=== PATIENT | female | born 1990 | race Caucasian/White ===

== ENCOUNTER 2020-09-21 10:49 | Emergency (ER) | payer MEDICAID ==
[~2020-09-21] VITALS: Ht 160 cm; Wt 70.0 kg
[2020-09-21 10:52] VITALS: BP 126/80
--- NOTE | 2020-09-21 10:59 | NUR ---
ferry pilot: urine cup given in triage pt eating in triage, pt advised to be NPO
[2020-09-21 11:33] LABS: BASOPHILS % (AUTO) 1 % (0-1); EOSINOPHILS % (AUTO) 2 % (1-7); LYMPHOCYTES % (AUTO) 31 % (22-44); MEAN CORPUSCULAR HEMOGLOBIN 34.9 pg (27.0-34.8); MEAN CORPUSCULAR HGB CONC 34.8 g/dL (32.4-35.8); MEAN PLATELET VOLUME 6.6 fL (7.4-10.4); MONOCYTES % (AUTO) 4 % (2-9); NEUTROPHILS % (AUTO) 64 % (42-75); PLATELET COUNT 231 x10^3/uL (130-400); RED BLOOD COUNT 4.89 x10^6/uL (3.82-5.3)
[2020-09-21 11:41] LABS: ALANINE AMINOTRANSFERASE 110 U/L (12-78); ANION GAP 11 mmol/L (5-15); CALCIUM 9.4 mg/dL (8.5-10.1); CHLORIDE 111 mmol/L (98-107); CREATININE 0.76 mg/dL (0.55-1.02)
[2020-09-21 11:46] LABS: ALKALINE PHOSPHATASE 75 U/L (45-117); BILIRUBIN,TOTAL 0.5 mg/dL (0.2-1.0); TOTAL PROTEIN 7.7 g/dL (6.4-8.2)
--- NOTE | 2020-09-21 12:54 | NUR ---
CASER: NO ANSWER X 1
--- NOTE | 2020-09-21 13:19 | NUR ---
TWX OPERATOR: CALLED PT NO ANSWER
--- NOTE | 2020-09-21 13:26 | NUR ---
SERVICE ORDER TAKER: CALLED PT NO ANSWER
== END 2020-09-21 13:28 | disposition left against medical advice (07) ==
LOC: ED 13:17
DX: N89.8 Other specified noninflammatory disorders of vagina (principal); R11.2 Nausea with vomiting, unspecified
CPT/HCPCS: 36415; 80053; 84703; 85025; 99283

== ENCOUNTER 2020-09-24 14:54 | Emergency (ER) | payer MEDICAID ==
[~2020-09-24] VITALS: Ht 160 cm; Wt 69.0 kg
[2020-09-24 15:54] LABS: BASOPHILS % (AUTO) 1 % (0-1); EOSINOPHILS % (AUTO) 2 % (1-7); LYMPHOCYTES % (AUTO) 20 % (22-44); MEAN CORPUSCULAR HEMOGLOBIN 34.4 pg (27.0-34.8); MEAN CORPUSCULAR HGB CONC 34.6 g/dL (32.4-35.8); MEAN PLATELET VOLUME 7.2 fL (7.4-10.4); MONOCYTES % (AUTO) 6 % (2-9); NEUTROPHILS % (AUTO) 72 % (42-75); PLATELET COUNT 192 x10^3/uL (130-400); RED BLOOD COUNT 4.92 x10^6/uL (3.82-5.3); RED CELL DISTRIBUTION WIDTH 12.8 % (9.6-15.2)
[2020-09-24 16:00] LABS: ALANINE AMINOTRANSFERASE 143 U/L (12-78); ALBUMIN 4.4 g/dL (3.4-5.0); ANION GAP 10 mmol/L (5-15); CALCIUM 8.9 mg/dL (8.5-10.1); CHLORIDE 106 mmol/L (98-107); CREATININE 0.55 mg/dL (0.55-1.02)
[2020-09-24 16:01] LABS: ALKALINE PHOSPHATASE 79 U/L (45-117); BILIRUBIN,TOTAL 1.4 mg/dL (0.2-1.0)
--- NOTE | 2020-09-24 17:03 | NUR ---
RESEARCH WORKER ENCYCLOPEDIA: PT TO ROOM FROM LOBBY VIA W/C
--- NOTE | 2020-09-24 17:54 | NUR ---
PT REPORTS "BLACK IUD" REMOVED DURING ED VISIT HERE LAST NIGHT. PT STATES IUD IN PLACE FOR AT LEAST 12 YEARS. FOLLOWING REMOVAL, PT STATES CONTINUAL N/V, HEMATURIA, AND VB. PT STATES LARGE AMOUNT OF BLOOD, ONE PAD AN HOUR. ALSO VAG DISCHARGE WITH FOUL ODOR. PT WENT TO [facility] EARLIER TODAY AND PER MOM, WAS GIVEN ZOFAN ODT AND WAITED IN LOBBY FOR FIVE HOURS. PT LEFT BEFORE BEING SEEN AND CAME HERE. LABS COMPLETED WHILE PT WAITED IN LOBBY, RESULTS BACK. ST CATH COMPLETED PER PROTOCOL, ORDERED AND WALKED TO LAB. SMALL AMOUNT OF BLOOD IN PERIAREA NOTED, NO DISCHARGE SEEN. VSS/UPDATED IN COMPUTER. CALL LIGHT WITHIN REACH.
[2020-09-24 18:29] LABS: MICROSCOPIC INDICATED
[2020-09-24] MEDS ORDERED: PROMETHAZINE 25 MG/ML, 1ML IM ONE (18:30)
[2020-09-24] MEDS ORDERED: PROMETHAZINE 25 MG/ML, 1ML ONE (18:31)
--- NOTE | 2020-09-24 18:50 | NUR ---
PT TO IMAGING
--- NOTE | 2020-09-24 18:54 | NUR ---
REPORT FROM NOE BRAR
--- NOTE | 2020-09-24 18:57 | NUR ---
REPORT TO ROBERTO BRAR.
--- NOTE | 2020-09-24 19:29 | NUR ---
PT RETURNED FROM US. PT SITTING UPRIGHT ON WILLIAM CALL, VSS. PT DENIES ANY NEEDS AT THIS TIME. CALL LIGHT AND PERSONAL BELONGINGS WITHIN REACH. FRIEND AT BEDSIDE.
[2020-09-24] MEDS ORDERED: CEFTRIAXONE 1,000 MG ONE (20:09)
[2020-09-24] MEDS ORDERED: CEFTRIAXONE 1,000 MG IM ONE (20:30)
--- NOTE | 2020-09-24 20:41 | NUR ---
Patient given discharge instructions and they have confirmed that they understand the instructions. Patient ambulatory with steady gait.
[2020-09-24 20:42] VITALS: BP 122/82
== END 2020-09-24 20:43 | disposition home or self-care (01) ==
LOC: ED 15:24
DX: R11.2 Nausea with vomiting, unspecified (principal); R10.9 Unspecified abdominal pain; N93.9 Abnormal uterine and vaginal bleeding, unspecified; R94.31 Abnormal electrocardiogram [ECG] [EKG]
CPT/HCPCS: 36415; 76830; 80053; 81001; 83690; 85025; 93005; 96372; 99285; J0696; J2550

== ENCOUNTER 2020-10-04 12:31 | Emergency (ER) | payer MEDICAID ==
[~2020-10-04] VITALS: Ht 160 cm; Wt 69.6 kg
--- NOTE | 2020-10-04 12:45 | NUR ---
HERE WEEK AGO FOR INFECTION AROUND PELVIS FROM IUD. RETURNED TODAY, BECAUSE STARTING TODAY SHE HAD SIMILAR FEELING BUT NO BLOOD IN URINE AND HAVING SHARP PAIN IN LOWER ABD. PT IN GOWN, HOOKED TO MONITOR, BELONGING AND CALL LIGHT W/IN REACH.
[2020-10-04] MEDS ORDERED: ONDANSETRON 2MG/ML, 2ML ONE (13:19)
[2020-10-04] MEDS ORDERED: SODIUM CHLORIDE 0.9% 1,000ML IVBOLUS ONE (13:30)
[2020-10-04] MEDS ORDERED: ONDANSETRON 2MG/ML, 2ML IVPush ONE (13:30)
--- NOTE | 2020-10-04 13:43 | NUR ---
PT ABLE TO PROVIDE URINE SAMPLE, THOUGH IT DOESN'T APPEAR TO BE ENOUGH TO PLACE IN TUBES, SAMPLE WALKED DOWN.PIV ATTEMPTED TWICE, BOTH INFILTRATED. TASK RN WILL TRY NEXT TO GET PIV AND TO DRAW LABS. WILLIAM SALINAS, CALL LIGHT W/IN REACH.
[2020-10-04 13:59] LABS: MICROSCOPIC INDICATED
[2020-10-04 14:08] VITALS: BP 127/85
[2020-10-04 14:16] LABS: BASOPHILS % (AUTO) 0 % (0-1); EOSINOPHILS % (AUTO) 0 % (1-7); LYMPHOCYTES % (AUTO) 12 % (22-44); MEAN CORPUSCULAR HEMOGLOBIN 34.4 pg (27.0-34.8); MEAN CORPUSCULAR HGB CONC 34.6 g/dL (32.4-35.8); MEAN PLATELET VOLUME 6.9 fL (7.4-10.4); MONOCYTES % (AUTO) 6 % (2-9); NEUTROPHILS % (AUTO) 81 % (42-75); PLATELET COUNT 189 x10^3/uL (130-400); RED BLOOD COUNT 5.14 x10^6/uL (3.82-5.3)
--- NOTE | 2020-10-04 14:46 | NUR ---
SBAR REPORT GIVEN TO DONNA
[2020-10-04 14:57] LABS: ALANINE AMINOTRANSFERASE 103 U/L (12-78); ALBUMIN 3.6 g/dL (3.4-5.0); ANION GAP 7 mmol/L (5-15); CALCIUM 8.5 mg/dL (8.5-10.1); CHLORIDE 112 mmol/L (98-107); CREATININE 0.63 mg/dL (0.55-1.02)
[2020-10-04 14:59] LABS: ALKALINE PHOSPHATASE 77 U/L (45-117); BILIRUBIN,TOTAL 1.2 mg/dL (0.2-1.0); TOTAL PROTEIN 6.6 g/dL (6.4-8.2)
[2020-10-04] MEDS ORDERED: CEFDINIR 300 MG CAPSULE PO ONE (15:00)
[2020-10-04] MEDS ORDERED: CEFDINIR 300 MG CAPSULE ONE (15:20)
[2020-10-04] MEDS ORDERED: POTASSIUM CHLORIDE 20 MEQ TAB.ER.PRT ONE (15:20)
[2020-10-04] MEDS ORDERED: POTASSIUM CHLORIDE 20 MEQ TAB.ER.PRT PO ONE (15:30)
== END 2020-10-04 15:48 | disposition home or self-care (01) ==
LOC: ED 13:04
DX: N30.00 Acute cystitis without hematuria (principal); R11.2 Nausea with vomiting, unspecified; E87.6 Hypokalemia
CPT/HCPCS: 36415; 80053; 81001; 83605; 85025; 87086; 96361; 96374; 99285; J2405; J7030